=== PATIENT | male | born 1965 | race Caucasian/White ===

== ENCOUNTER 2017-11-18 13:00 | Inpatient (IN) | payer OTHER ==
[~2017-11-18] VITALS: Ht 154.9 cm; Wt 86.2 kg
[2017-12-03] MEDS ORDERED: FENOFIBRATE160 MG PO (15:33)
[2017-12-03] MEDS ORDERED: TOPROL XL50 M1 PO (15:33)
[2017-12-14] MEDS ORDERED: PERCOCET 5-3251 EACH PO (12:54)
[2017-12-14] MEDS ORDERED: INTESTINEX680 M1 PO (12:54)
[2017-12-14] MEDS ORDERED: OMEPRAZOLE20 MG PO (13:16)
== END 2017-12-14 14:15 | disposition home or self-care (01) | DRG 331 ==
LOC: ADM 12-03 14:45 → EDSTATUS 12-03 14:45 → O/R 12-10 05:57 → SURH 12-10 05:57
PROVIDERS: Surgery; Urology
PROC: 0DNW4ZZ Release Peritoneum, Percutaneous Endoscopic Approach (ICD-10-PCS; 2017-12-10)
PROC: 0TN74ZZ Release Left Ureter, Percutaneous Endoscopic Approach (ICD-10-PCS; 2017-12-10)
PROC: 0TN64ZZ Release Right Ureter, Percutaneous Endoscopic Approach (ICD-10-PCS; 2017-12-10)
PROC: 0DJD8ZZ Inspection of Lower Intestinal Tract, Via Natural or Artificial Opening Endoscopic (ICD-10-PCS; 2017-12-10)
PROC: 0T788DZ Dilation of Bilateral Ureters with Intraluminal Device, Via Natural or Artificial Opening Endoscopic (ICD-10-PCS; 2017-12-10)
PROC: 0DTN4ZZ Resection of Sigmoid Colon, Percutaneous Endoscopic Approach (ICD-10-PCS; principal; 2017-12-10 07:00)
PROC: 0DTU4ZZ Resection of Omentum, Percutaneous Endoscopic Approach (ICD-10-PCS; 2017-12-10 07:00)
DX: K57.32 Diverticulitis of large intestine without perforation or abscess without bleeding (principal); I10 Essential (primary) hypertension; E78.4 Other hyperlipidemia; K66.0 Peritoneal adhesions (postprocedural) (postinfection)

== ENCOUNTER → 2018-12-05 | Day surgery (SDC) | payer OTHER ==
[~2018-12-05] MED LIST: FENOFIBRATE160 MG PO; INTESTINEX680 M1 PO; OMEPRAZOLE20 MG PO; PERCOCET 5-3251 EACH PO; TOPROL XL50 M1 PO
== END | disposition home or self-care (01) ==
LOC: ADM 11-30 13:00 → AMB-ENDOS 10:30
DX: K64.8 Other hemorrhoids (principal)